=== PATIENT | female | born 1990 | race Two or more races ===

== ENCOUNTER → 2016-11-14 | Outpatient (CLI) | payer OTHER ==
--- NOTE | 2016-11-14 14:09 | KCIC ---
CHEST AP ONLY History: Positive TB reaction Comparison: None. Findings: There is no infiltrate, pneumothorax, or effusion. The pericardial cardiac silhouette is within normal limits in size. The trachea is in the midline. No acute osseous abnormality is identified. Impression: 1. There is no evidence of acute cardiopulmonary disease. There are no radiographic findings suggestive of active tuberculosis. Electronically signed by: Meño Minor MD (11/14/2016 2:06 PM) [id number]
== END | disposition home or self-care (01) ==
LOC: KCIC 13:29
PROVIDERS: ATTEND Family Medicine
DX: R76.11 Nonspecific reaction to tuberculin skin test without active tuberculosis (principal)
CPT/HCPCS: 71010